=== PATIENT | female | born 1950 | race Caucasian/White ===

== ENCOUNTER 2018-12-27 08:53 | Outpatient (CLI) | payer MEDICARE, BC ==
--- NOTE | 2018-12-28 08:14 | DEXA Report ---
Reason: ASYMPTOMATIC MENOPAUSAL STATE Procedure Date: 12/27/2018 Accession Number: [id number] / [id number] Procedure: DEX - Dexa Spine and/or Hip CPT Code: FULL RESULT: EXAM: Dexa Spine and/or Hip DATE: 12/27/2018 9:21 AM CLINICAL HISTORY: ASYMPTOMATIC MENOPAUSAL STATE TECHNIQUE: Dual energy x-ray absorptiometry (DXA) was performed on a FDTEK System. Regions measured are the AP Spine, femoral neck, and if needed forearm. COMPARISON: None. In accordance with the International Society for Clinical Densitometry (ISCD) guidelines, data from previous exams may be reanalyzed using current recommendations and techniques. This is done to allow a more accurate basis for comparison with the current study. FINDINGS: The data for the lumbar spine is as follows: BMD (g/cm/cm) T-SCORE Z-SCORE REGION L1 1.006 -1.0 0.8 L2 1.121 -0.7 1.2 L3 1.100 -0.8 1.0 L4 1.192 -0.1 1.7 TOTAL 1.113 -0.6 1.2 NOTE: All evaluable vertebrae are used for classification The data for the hip is as follows: BMD (g/cm/cm) T-SCORE Z-SCORE REGION Neck 0.797 -1.7 0.0 TOTAL 0.822 -1.5 0.1 NOTE: The femoral neck or total proximal femur, whichever is lowest, is used for classification. IMPRESSION: THE WHO CLASSIFICATION BASED ON THE INTERNATIONAL REFERENCE STANDARD IS OSTEOPENIA. THE FRACTURE RISK IS INCREASED. Please note that the bone density values for the lumbar spine may represent false reassurance given the obvious scoliosis of the lumbar spine. While DEXA imaging is not of diagnostic radiographic value, I do suspect compression fractures of the lumbar spine may be the underlying etiology of this scoliosis. Please consider radiographs of the lumbar spine unless the clinical scenario is clear. RECOMMENDATION: Patients with diagnosis of osteoporosis or osteopenia should have regular bone mineral density assessment. For those eligible for Medicare, routine testing is allowed once every 2 years. Testing frequency can be increased for patients who have rapidly progressing disease or for those who are receiving medical therapy to restore bone mass. COMMENT: World Health Organization (WHO) definitions for osteoporosis and osteopenia: NORMAL BMD: T-score at -1.0 or higher, fracture risk is low OSTEOPENIA BMD: T-score between -1.0 and -2.5, fracture risk is increased. OSTEOPOROSIS BMD: T-score at -2.5 or lower, fracture risk is high. National Osteoporosis Foundation recommends: 1. Obtain adequate dietary calcium (at least 1200 mg per day) and vitamin D (400-800 international units per day). 2. Participate, as appropriate, in regular weightbearing and muscle-strengthening exercise. 3. Avoid tobacco use and reduce alcohol and caffeine intake. 4. For more detailed information see the website at www.NOF.org.
== END 2018-12-27 08:54 | disposition home or self-care (01) ==
LOC: DI 08:53
PROVIDERS: ATTEND Registered Nurse
DX: M85.89 Other specified disorders of bone density and structure, multiple sites (principal); Z78.0 Asymptomatic menopausal state
CPT/HCPCS: 77080

== ENCOUNTER 2020-03-29 15:55 | Outpatient (CLI) | payer MEDICARE, BC ==
--- NOTE | 2020-03-29 18:29 | XRAY Report ---
PROCEDURE: TMJ - Left Unilateral INDICATIONS: JAW PAIN TECHNIQUE: 5 views of the left temporomandibular joint to include open and closed mouth views COMPARISON: None. FINDINGS: Visualized osseous structures appear intact. No suspicious osseous lesions. No asymmetric opacificati on the paranasal sinuses or mastoid air cells. Visualized left temporomandibular joint appears to demonstrate expected anterior and inferior transla tion between closed and open-mouth views. IMPRESSION: Negative left temporomandibular joint series. If there is persistent clinical concern for internal temporomandibular joint derangement, further kehinde luation with MRI may be more sensitive. Reviewed by: Anup Meyers MD on 03/29/2020 5:27 PM [facility] Approved by: Anup Meyers MD on 03/29/2020 5:27 PM [facility] Station ID: [id number]
== END 2020-03-29 15:56 | disposition home or self-care (01) ==
LOC: DI.S 15:55
PROVIDERS: ATTEND Registered Nurse
DX: R68.84 Jaw pain (principal)

== ENCOUNTER 2021-12-09 07:58 | Outpatient (CLI) | payer MEDICARE, BC ==
--- NOTE | 2021-12-09 13:59 | Ultrasound Report ---
PROCEDURE: Abdomen Limited INDICATIONS: NODULE OF SKIN OF ABD TECHNIQUE: Real-time scanning was performed of the abdominal and retroperitoneal organs, with image documentatio n. COMPARISON: None. FINDINGS: Sonographic images at the region of the xiphoid process demonstrate normal cartilaginous structure. T here is no otherwise abnormal mass or fluid collection. No increased vascularity. No herniation. IMPRESSION: Unremarkable exam. Reviewed by: Dione Pisano MD on 12/09/2021 1:57 PM PDT Approved by: Dione Pisano MD on 12/09/2021 1:57 PM PDT Station ID: [id number]
== END 2021-12-09 07:59 | disposition home or self-care (01) ==
LOC: DI 07:58
PROVIDERS: ATTEND Internal Medicine
DX: R22.2 Localized swelling, mass and lump, trunk (principal)